=== PATIENT | female | born 1950 | race Caucasian/White ===

== ENCOUNTER 2016-06-23 17:00 | Outpatient (RCR) | payer BC, MEDICAID | END 2016-07-08 | disposition home or self-care (01) | LOC: PTY 17:00 | DX: M54.2 Cervicalgia (principal); M62.838 Other muscle spasm ==

== ENCOUNTER 2016-07-11 16:30 | Outpatient (RCR) | payer BC, MEDICAID | END 2016-08-07 | disposition home or self-care (01) | LOC: PTY 16:30 | DX: M54.2 Cervicalgia (principal); M62.838 Other muscle spasm | CPT/HCPCS: 97035; 97110; 97140; G0283 ==

== ENCOUNTER 2016-08-08 16:00 | Outpatient (RCR) | payer BC, MEDICAID | END 2016-09-07 | disposition home or self-care (01) | LOC: PTY 16:00 | DX: M54.2 Cervicalgia (principal); M62.838 Other muscle spasm | CPT/HCPCS: 97110; 97140; G0283 ==